=== PATIENT | male | born 1950 | race Hispanic/Latino ===

== ENCOUNTER 2022-09-29 09:17 | Day surgery (SDC) | payer BC ==
[2022-09-26 12:10] VITALS: BMI 38.7
[2022-09-29] MEDS ORDERED: Midazolam HCl 2 mg/2 ml Vial ONE (11:30)
[2022-09-29] MEDS ORDERED: fentaNYL PF 100 MCG/2 ML SYRINGE ONE ×2 (11:30→12:38)
[2022-09-29] MEDS ORDERED: Famotidine/PF 20 mg/2ml Vial ONE (11:31)
[2022-09-29] MEDS ORDERED: Dexamethasone 20 MG/5 ML VIAL ONE (12:30)
[2022-09-29] MEDS ORDERED: PROPOFOL 200 MG/20 ML VIAL ONE (12:30)
[2022-09-29] MEDS ORDERED: Ondansetron PF 4 MG/2 ML Vial ONE (12:30)
[2022-09-29] MEDS ORDERED: Lidocaine 2% PF 5 ML VIAL ONE (12:30)
== END 2022-09-29 14:39 | disposition home or self-care (01) ==
LOC: MRI 09:17
PROVIDERS: ATTEND Neurological Surgery
DX: M47.12 Other spondylosis with myelopathy, cervical region (principal); M50.01 Cervical disc disorder with myelopathy, high cervical region; M48.02 Spinal stenosis, cervical region; J45.909 Unspecified asthma, uncomplicated; E11.9 Type 2 diabetes mellitus without complications; I10 Essential (primary) hypertension; G47.33 Obstructive sleep apnea (adult) (pediatric); Z79.4 Long term (current) use of insulin; Z79.621 Long term (current) use of calcineurin inhibitor; Z79.83 Long term (current) use of bisphosphonates; Z79.899 Other long term (current) drug therapy; Z88.6 Allergy status to analgesic agent; Z91.040 Latex allergy status
CPT/HCPCS: 36416; 72141; J1100; J2001; J2250; J2405; J2704; S0028

== ENCOUNTER 2022-11-03 09:44 | Day surgery (SDC) | payer BC ==
[2022-10-30 15:12] VITALS: BMI 39.4
[2022-11-03] MEDS ORDERED: Lidocaine 1% PF 5 ML VIAL ONE (12:15)
[2022-11-03] MEDS ORDERED: PROPOFOL 200 MG/20 ML VIAL ONE (12:15)
[2022-11-03] MEDS ORDERED: Ondansetron PF 4 MG/2 ML Vial ONE (12:15)
== END 2022-11-03 13:50 | disposition home or self-care (01) ==
LOC: MRI 09:44
PROVIDERS: ATTEND Neurological Surgery
DX: I63.9 Cerebral infarction, unspecified (principal); M47.12 Other spondylosis with myelopathy, cervical region; R27.0 Ataxia, unspecified; M50.01 Cervical disc disorder with myelopathy, high cervical region; J45.909 Unspecified asthma, uncomplicated; E11.9 Type 2 diabetes mellitus without complications; I10 Essential (primary) hypertension; Z79.4 Long term (current) use of insulin; Z79.621 Long term (current) use of calcineurin inhibitor; Z79.83 Long term (current) use of bisphosphonates; Z79.899 Other long term (current) drug therapy; Z88.6 Allergy status to analgesic agent; Z91.041 Radiographic dye allergy status; Z94.4 Liver transplant status
CPT/HCPCS: 36416; 70551; J2405; J2704

== ENCOUNTER 2022-12-30 09:41 | Outpatient (CLI) | payer BC ==
[2022-12-30 11:24] LABS: Hemoglobin 13.6 g/dL (13.5-17.5); Mean Corpuscular HGB CONC 33.1 g/dL (32.0-36.0); Mean Corpuscular Volume 90.7 fl (81.2-95.1); Mean Platelet Volume 10.2 fl (7.4-10.4); Platelet Count 175 10x3/uL (150-450); RBC Distribution Width 12.8 % (11.5-14.5); Red Blood Cell (RBC) Count 4.53 10x6/uL (4.32-5.72); White Blood Cell (WBC) Count 6.6 10x3/uL (3.5-10.5)
[2022-12-30 11:34] LABS: PTT 27.1 sec (22.0-33.0)
[2022-12-30 11:42] LABS: ALT (SGPT) 26 U/L (8-55); AST (SGOT) 22 U/L (5-34); Albumin 4.6 g/dL (3.4-4.8); Alkaline Phosphatase 75 U/L (40-110); Anion Gap 16 mmol/L (10-20); BUN (Urea Nitrogen) 20 mg/dL (8.4-25.7); Bilirubin, Direct 0.3 mg/dL (0.1-0.3); Bilirubin, Total 0.6 mg/dL (0.2-1.2); Calc. Creatinine Clearance 0 mL/min (70-130); Calcium 9.8 mg/dL (7.8-10.44); Carbon Dioxide 25 mmol/L (23-31); Chloride 104 mmol/L (98-107); Estimated GFR 72; Glucose 95 mg/dL (80-115); Potassium 3.9 mmol/L (3.5-5.1); Protein, Total 7.3 g/dL (5.8-8.1); Sodium 141 mmol/L (136-145)
== END 2022-12-30 09:42 | disposition home or self-care (01) ==
LOC: LABBT 09:41
PROVIDERS: ATTEND Neurological Surgery
DX: Z01.812 Encounter for preprocedural laboratory examination (principal); M50.01 Cervical disc disorder with myelopathy, high cervical region; M53.2X2 Spinal instabilities, cervical region
CPT/HCPCS: 80048; 80076; 85027; 85610; 85730; 93005; 93010

== ENCOUNTER 2023-01-02 05:39 | Day surgery (SDC) | payer BC ==
[2022-12-30 10:01] VITALS: BMI 39.4
[2023-01-02] MEDS ORDERED: Thrombin 5000 UNITS/5 ML VIAL ONE (06:26)
[2023-01-02] MEDS ORDERED: Vancomycin 1 GM VIAL ONE (06:26)
[2023-01-02] MEDS ORDERED: Sodium Chloride 0.9% 100 ML ONE (06:42)
[2023-01-02] MEDS ORDERED: CEFAZOLIN 2 GM VIAL ONE (06:42)
[2023-01-02] MEDS ORDERED: fentaNYL PF 100 MCG/2 ML SYRINGE ONE (06:51)
[2023-01-02] MEDS ORDERED: HYDROmorphone 0.5 MG/0.5 ML SYRINGE ONE (06:51)
[2023-01-02] MEDS ORDERED: Rocuronium Bromide 10 MG/ML (10ML VIAL) ONE (07:00)
[2023-01-02] MEDS ORDERED: PROPOFOL 200 MG/20 ML VIAL ONE (07:00)
[2023-01-02] MEDS ORDERED: Dexamethasone 20 MG/5 ML VIAL ONE (07:00)
[2023-01-02] MEDS ORDERED: ePHEDrine Sulfate 50 MG/10 ML VIAL ONE (07:00)
[2023-01-02] MEDS ORDERED: PHENYLEPHRINE-NS 100 MCG/ML 10 ML SYRINGE ONE (07:00)
[2023-01-02] MEDS ORDERED: Lidocaine 1% PF 5 ML VIAL ONE (07:00)
[2023-01-02] MEDS ORDERED: Ondansetron PF 4 MG/2 ML Vial ONE (07:00)
[2023-01-02] MEDS ORDERED: Succinylcholine 200 MG/10 ml SYRINGE FS ONE (07:00)
[2023-01-02] MEDS ORDERED: SUGAMMADEX SODIUM 200 MG/2 ML VIAL ONE (08:32)
[2023-01-02] MEDS ORDERED: Fentanyl 250 MCG/5 ML VIAL ONE (09:32)
[2023-01-02] MEDS ORDERED: Promethazine HCl 25 MG/ML VIAL ONE (10:28)
== END 2023-01-02 13:38 ==
LOC: SDC 05:39
PROVIDERS: ATTEND Neurological Surgery
PROC: 0RG10A0 Fusion of Cervical Vertebral Joint with Interbody Fusion Device, Anterior Approach, Anterior Column, Open Approach (ICD-10-PCS; principal; 2023-01-02)
PROC: 0RB30ZZ Excision of Cervical Vertebral Disc, Open Approach (ICD-10-PCS; principal; 2023-01-02)
DX: M50.01 Cervical disc disorder with myelopathy, high cervical region (principal); M53.2X2 Spinal instabilities, cervical region; J45.909 Unspecified asthma, uncomplicated; E11.9 Type 2 diabetes mellitus without complications; I10 Essential (primary) hypertension; K75.9 Inflammatory liver disease, unspecified; Z94.4 Liver transplant status; Z96.653 Presence of artificial knee joint, bilateral; Z79.4 Long term (current) use of insulin; Z79.82 Long term (current) use of aspirin; Z79.621 Long term (current) use of calcineurin inhibitor; Z79.899 Other long term (current) drug therapy
CPT/HCPCS: 36416; 94660; C1713; J1100; J1170; J2405; J2550; J2704; J3010; J3370; J3490

== ENCOUNTER 2023-03-20 11:29 | Day surgery (SDC) | payer BC ==
[2023-03-19 10:15] VITALS: BMI 38.7
[2023-03-20 14:02] LABS: Anion Gap 12 mmol/L (10-20); BUN (Urea Nitrogen) 16 mg/dL (8.4-25.7); Calc. Creatinine Clearance 112 mL/min (70-130); Calcium 9.6 mg/dL (7.8-10.44); Carbon Dioxide 27 mmol/L (23-31); Chloride 102 mmol/L (98-107); Estimated GFR 76; Glucose 157 mg/dL (80-115); Potassium 3.8 mmol/L (3.5-5.1); Sodium 137 mmol/L (136-145)
[2023-03-20] MEDS ORDERED: PROPOFOL 200 MG/20 ML VIAL ONE (14:15)
[2023-03-20] MEDS ORDERED: Lidocaine 1% PF 5 ML VIAL ONE (14:15)
== END 2023-03-20 15:58 | disposition home or self-care (01) ==
LOC: MRI 11:29
PROVIDERS: ATTEND Neurological Surgery
DX: M48.062 Spinal stenosis, lumbar region with neurogenic claudication (principal); J45.909 Unspecified asthma, uncomplicated; E11.9 Type 2 diabetes mellitus without complications; I10 Essential (primary) hypertension; K75.9 Inflammatory liver disease, unspecified; Z98.52 Vasectomy status; Z94.4 Liver transplant status; Z96.659 Presence of unspecified artificial knee joint; Z88.6 Allergy status to analgesic agent; Z91.041 Radiographic dye allergy status; Z79.4 Long term (current) use of insulin; Z79.82 Long term (current) use of aspirin; Z79.899 Other long term (current) drug therapy
CPT/HCPCS: 72120; 72148; 80048

== ENCOUNTER 2023-06-25 12:48 | Outpatient (CLI) | payer BC | END 2023-06-25 12:49 | disposition home or self-care (01) | LOC: LABBT 12:48 | PROVIDERS: ATTEND Neurological Surgery | DX: Z01.810 Encounter for preprocedural cardiovascular examination (principal); I77.0 Arteriovenous fistula, acquired | CPT/HCPCS: 93005; 93010 ==

== ENCOUNTER → 2023-07-02 | Day surgery (SDC) | payer BC ==
[~2023-07-02] MED LIST: Heparin 10,000 UNITS/ 10 ML VIAL ONE; Iopamidol 370 76% 100 ML VIAL ONE
== END ==
LOC: SDC 06:24
PROVIDERS: ATTEND Neurological Surgery
DX: I77.0 Arteriovenous fistula, acquired (principal)
CPT/HCPCS: 36215; 75705; C1769; C1894; J1644; Q9967

== ENCOUNTER 2023-07-16 09:35 | Inpatient (IN) | payer MEDICARE, BC ==
[2023-07-16 12:07] LABS: #Eosinphils 0.1 thou/uL (0.0-0.7); #Monocytes 0.4 thou/uL (0.11-0.59); #Neutrophils 3.8 thou/uL (1.40-6.50); %Basophils 0.4 % (0.0-1.0); %Eosinophils 1.2 % (0.0-10.0); %Lymphocytes 23.1 % (21.0-51.0); %Monocytes 7.5 % (0.0-10.0); %Neutrophils 67.4 % (42.0-75.0); Hematocrit 38.1 % (42.0-52.0); Mean Corpuscular HGB CONC 34.1 g/dL (32.0-36.0); Mean Corpuscular Hemoglobin 31.9 pg (27.0-31.0); Mean Corpuscular Volume 93.6 fl (78.0-98.0); Platelet Count 136 10x3/uL (130-400); RBC Distribution Width 12.9 % (11.5-14.5); Red Blood Cell (RBC) Count 4.07 mill/uL (4.70-6.10); White Blood Cell (WBC) Count 5.6 10x3/uL (4.8-10.8)
[2023-07-16 12:24] LABS: Anion Gap 14 mmol/L (10-20); BUN (Urea Nitrogen) 15 mg/dL (8.4-25.7); Calc. Creatinine Clearance 123 mL/min (70-130); Carbon Dioxide 25 mmol/L (23-31); Chloride 106 mmol/L (98-107); Estimated GFR 83; Glucose 192 mg/dL (83-110); Potassium 4.1 mmol/L (3.5-5.1); Sodium 141 mmol/L (136-145)
[2023-07-16 12:29] LABS: INR-International Normal Ratio 1.1; Prothrombin Time 14.3 sec (12.0-14.7)
[2023-07-16 12:30] LABS: PTT 23.2 sec (22.9-36.1)
[2023-07-16] MEDS ORDERED: EPINEPHrine 1 MG/ML VIAL ONE (13:05)
[2023-07-16] MEDS ORDERED: Vancomycin 1 GM VIAL ONE (13:06)
[2023-07-16] MEDS ORDERED: Bupivacaine PF 0.5% 30 ML VIAL ONE (13:06)
[2023-07-16] MEDS ORDERED: Thrombin 5000 UNITS/5 ML VIAL ONE (13:06)
[2023-07-16] MEDS ORDERED: Rocuronium Bromide 10 MG/ML (10ML VIAL) ONE (13:11)
[2023-07-16] MEDS ORDERED: PROPOFOL 20 ML ONE (13:11)
[2023-07-16] MEDS ORDERED: Lidocaine 1% PF 5 ML VIAL ONE (13:11)
[2023-07-16] MEDS ORDERED: CEFAZOLIN 2 GM VIAL ONE (14:03)
[2023-07-16] MEDS ORDERED: Sodium Chloride 0.9% 100 ML ONE (14:03)
[2023-07-16] MEDS ORDERED: Fentanyl 250 MCG/5 ML VIAL ONE (14:08)
[2023-07-16] MEDS ORDERED: Ondansetron PF 4 MG/2 ML Vial ONE ×2 (15:09→20:25)
[2023-07-16] MEDS ORDERED: Dexamethasone 20 MG/5 ML VIAL ONE (15:09)
[2023-07-16] MEDS ORDERED: Vecuronium 10 MG VIAL ONE (16:03)
[2023-07-16] MEDS ORDERED: CEFAZOLIN 1 GM VIAL ONE (18:28)
[2023-07-16] MEDS ORDERED: Sterile Water 0 ML ONE (18:28)
[2023-07-16] MEDS ORDERED: SUGAMMADEX SODIUM 200 MG/2 ML VIAL ONE (19:29)
[2023-07-16] MEDS ORDERED: Promethazine HCl 25 MG/ML VIAL IM PRN (19:49)
[2023-07-16] MEDS ORDERED: Ondansetron HCl/PF 4 MG/2 ML Vial IVP PRN (19:49)
[2023-07-16] MEDS ORDERED: HYDROmorphone 2 MG/ML VIAL SLOW IVP PRN (19:49)
[2023-07-16] MEDS ORDERED: Meperidine HCl/PF 25 MG/ML VIAL SLOW IVP PRN ×2 (19:49)
[2023-07-16] MEDS ORDERED: diphenhydrAMINE 50 MG/ML VIAL IVP PRN (19:59)
[2023-07-16] MEDS ORDERED: Acetaminophen 325 MG TAB PO PRN (19:59)
[2023-07-16] MEDS ORDERED: Morphine 2 MG/ML VIAL SLOW IVP PRN (19:59)
[2023-07-16] MEDS ORDERED: Acetaminophen/Codeine 30-300mg Tablet PO PRN (19:59)
[2023-07-16] MEDS ORDERED: Mag-Al 1200 mg/1200 mg/30 ML UDCUP PO PRN (19:59)
[2023-07-16] MEDS ORDERED: Ondansetron PF 4 MG/2 ML Vial IVP PRN (19:59)
[2023-07-16] MEDS ORDERED: Bisacodyl 10 MG SUPP PR PRN (19:59)
[2023-07-16] MEDS ORDERED: fentaNYL PF 100 MCG/2 ML SYRINGE ONE (20:02)
[2023-07-16] MEDS ORDERED: fentaNYL 50 mcg/mL 1 mL Vial ONE (20:26)
[2023-07-16] MEDS: tiZANidine HCl 4 MG TAB PO PRN (21:33)
[2023-07-16] MEDS: CEFAZOLIN 2 GM in Sodium Chloride 0.9% 100 ML IVPB SCH (21:35)
[2023-07-16] MEDS: HYDROcodone/Acetaminophen 10/325 mg Tablet PO PRN (21:35)
[2023-07-16] MEDS: Sodium Chloride 0.9% 1,000 ML IV SCH (21:36)
[2023-07-17 00:50] VITALS: BMI 39.5
[2023-07-17] MEDS: tiZANidine HCl 4 MG TAB PO PRN ×2 (04:24→20:12)
[2023-07-17] MEDS: CEFAZOLIN 2 GM in Sodium Chloride 0.9% 100 ML IVPB SCH (04:24)
[2023-07-17] MEDS: Tamsulosin HCl 0.4 MG CAP PO SCH (04:24)
[2023-07-17] MEDS: Sodium Chloride 0.9% 1,000 ML IV SCH ×2 (10:12→22:09)
[2023-07-17] MEDS ORDERED: Montelukast Sodium 10 mg Tablet PO PRN (13:08)
[2023-07-17] MEDS ORDERED: Non-Formulary Item 1 EACH (Albuterol Sulfate [Proair Digihaler] 90 MCG Aer.Pw.Bas) INH PRN (13:08)
[2023-07-17] MEDS ORDERED: Albuterol 2.5 MG (3 mL) NEB NEB PRN (13:40)
[2023-07-17] MEDS ORDERED: Non-Formulary Item 1 EACH (Gabapentin [Gabapentin] 600 MG Tablet) PO SCH (15:00)
[2023-07-17] MEDS: Gabapentin 300 MG CAP PO SCH ×2 (15:40→20:11)
[2023-07-17] MEDS: HumaLOG 300 UNITS/3 ML VIAL SC SCH (18:14)
[2023-07-17] MEDS: Simvastatin 10 MG TAB PO SCH (20:10)
[2023-07-17] MEDS: Carvedilol 6.25 MG TAB PO SCH (20:11)
[2023-07-17] MEDS: Tacrolimus 1 MG CAP PO SCH (20:12)
[2023-07-17] MEDS: QUEtiapine 25 MG TAB PO SCH (20:12)
[2023-07-17] MEDS: Insulin Glargine 30 UNITS/0.3 ML VIAL SC SCH ×2 (20:14→20:29)
[2023-07-17] MEDS ORDERED: Pravastatin Sodium 20 MG TAB PO SCH (21:00)
[2023-07-17] MEDS ORDERED: Non-Formulary Item 1 EACH (Carvedilol [Coreg] 12.5 MG Tab) PO SCH (21:00)
[2023-07-17] MEDS ORDERED: Non-Formulary Item 1 EACH (Levemir Flexpen [Levemir Flexpen] 100 UNITS/ML Pen) SC SCH (21:00)
[2023-07-18] MEDS: HYDROcodone/Acetaminophen 7.5/325 mg Tablet PO PRN ×2 (03:21→22:18)
[2023-07-18] MEDS: Tamsulosin HCl 0.4 MG CAP PO SCH (06:06)
[2023-07-18] MEDS ORDERED: Non-Formulary Item 1 EACH (Esomeprazole Magnesium [Nexium] 40 MG Cap) PO SCH (08:00)
[2023-07-18] MEDS: Amlodipine 10 MG TAB PO SCH (08:49)
[2023-07-18] MEDS: Losartan 25 MG TAB PO SCH (08:50)
[2023-07-18] MEDS: Loratadine 10 MG TAB PO SCH (08:51)
[2023-07-18] MEDS: Cholecalciferol 1,000 UNITS (25 MCG) TAB PO SCH (08:51)
[2023-07-18] MEDS: QUEtiapine 25 MG TAB PO SCH ×2 (08:51→20:39)
[2023-07-18] MEDS: Carvedilol 6.25 MG TAB PO SCH ×2 (08:52→20:41)
[2023-07-18] MEDS: PARoxetine 20 MG TAB PO SCH (08:52)
[2023-07-18] MEDS: Gabapentin 300 MG CAP PO SCH ×3 (08:53→20:38)
[2023-07-18] MEDS: Tacrolimus 0.5 MG CAP PO SCH (08:53)
[2023-07-18] MEDS: tiZANidine HCl 4 MG TAB PO PRN ×2 (08:53→21:55)
[2023-07-18] MEDS ORDERED: Non-Formulary Item 1 EACH (Fexofenadine Hcl [Allegra Allergy] 180 MG Tablet) PO SCH (09:00)
[2023-07-18] MEDS ORDERED: Non-Formulary Item 1 EACH (Losartan Potassium [Losartan Potassium] 100 MG Tablet) PO SCH (09:00)
[2023-07-18] MEDS ORDERED: Non-Formulary Item 1 EACH (Paroxetine Hcl [Paroxetine Hcl] 10 MG Tablet) PO SCH (09:00)
[2023-07-18] MEDS: HumaLOG 300 UNITS/3 ML VIAL SC SCH ×3 (09:02→18:15)
[2023-07-18] MEDS: HYDROcodone/Acetaminophen 10/325 mg Tablet PO PRN ×2 (09:03→18:11)
[2023-07-18] MEDS ORDERED: Milk Of Magnesia 30 ML UDCUP PO PRN (12:49)
[2023-07-18] MEDS: Sodium Chloride 0.9% 1,000 ML IV SCH (13:20)
[2023-07-18] MEDS: Simvastatin 10 MG TAB PO SCH (20:38)
[2023-07-18] MEDS: Docusate 100 MG CAP PO SCH (20:40)
[2023-07-18] MEDS: Tacrolimus 1 MG CAP PO SCH (20:40)
[2023-07-18] MEDS: Insulin Glargine 30 UNITS/0.3 ML VIAL SC SCH ×2 (21:55)
[2023-07-19] MEDS ORDERED: Insulin Glargine 30 UNITS/0.3 ML VIAL SC SCH ×2 (00:30→21:30)
[2023-07-19] MEDS: HYDROcodone/Acetaminophen 7.5/325 mg Tablet PO PRN (04:09)
[2023-07-19] MEDS: Sodium Chloride 0.9% 1,000 ML IV SCH ×2 (04:23→11:32)
[2023-07-19] MEDS: Tamsulosin HCl 0.4 MG CAP PO SCH (05:14)
[2023-07-19] MEDS ORDERED: Alendronate Sodium 70 mg Tablet PO SCH (06:00)
[2023-07-19] MEDS: Cholecalciferol 1,000 UNITS (25 MCG) TAB PO SCH (08:23)
[2023-07-19] MEDS: Losartan 25 MG TAB PO SCH (08:23)
[2023-07-19] MEDS: PARoxetine 20 MG TAB PO SCH (08:23)
[2023-07-19] MEDS: QUEtiapine 25 MG TAB PO SCH ×2 (08:23→20:24)
[2023-07-19] MEDS: Carvedilol 6.25 MG TAB PO SCH ×2 (08:23→20:25)
[2023-07-19] MEDS: Docusate 100 MG CAP PO SCH ×2 (08:24→20:23)
[2023-07-19] MEDS: Tacrolimus 0.5 MG CAP PO SCH (08:24)
[2023-07-19] MEDS: Amlodipine 10 MG TAB PO SCH (08:24)
[2023-07-19] MEDS: Gabapentin 300 MG CAP PO SCH ×3 (08:24→20:23)
[2023-07-19] MEDS: Loratadine 10 MG TAB PO SCH (08:24)
[2023-07-19] MEDS: HYDROcodone/Acetaminophen 10/325 mg Tablet PO PRN (08:24)
[2023-07-19] MEDS: HumaLOG 300 UNITS/3 ML VIAL SC SCH ×3 (08:36→17:17)
[2023-07-19] MEDS ORDERED: oxyCODONE 5 MG TAB PO PRN (10:29)
[2023-07-19] MEDS: tiZANidine HCl 4 MG TAB PO PRN (12:33)
[2023-07-19] MEDS: oxyCODONE 5 MG TAB PO PRN ×2 (17:18→21:14)
[2023-07-19] MEDS: Tacrolimus 1 MG CAP PO SCH (20:21)
[2023-07-19] MEDS: Simvastatin 10 MG TAB PO SCH (20:25)
[2023-07-19] MEDS: Insulin Glargine 30 UNITS/0.3 ML VIAL SC SCH (21:30)
[2023-07-20] MEDS: tiZANidine HCl 4 MG TAB PO PRN ×2 (00:59→08:31)
[2023-07-20] MEDS: oxyCODONE 5 MG TAB PO PRN ×4 (00:59→16:02)
[2023-07-20] MEDS: Sodium Chloride 0.9% 1,000 ML IV SCH (03:12)
[2023-07-20] MEDS: Tamsulosin HCl 0.4 MG CAP PO SCH (05:26)
[2023-07-20] MEDS: HumaLOG 300 UNITS/3 ML VIAL SC SCH ×2 (08:30→13:38)
[2023-07-20] MEDS: Docusate 100 MG CAP PO SCH (08:31)
[2023-07-20] MEDS: Cholecalciferol 1,000 UNITS (25 MCG) TAB PO SCH (08:31)
[2023-07-20] MEDS: Losartan 25 MG TAB PO SCH (08:31)
[2023-07-20] MEDS: Carvedilol 6.25 MG TAB PO SCH (08:32)
[2023-07-20] MEDS: Tacrolimus 0.5 MG CAP PO SCH (08:32)
[2023-07-20] MEDS: PARoxetine 20 MG TAB PO SCH (08:32)
[2023-07-20] MEDS: QUEtiapine 25 MG TAB PO SCH (08:33)
[2023-07-20] MEDS: Gabapentin 300 MG CAP PO SCH ×2 (08:33→16:03)
[2023-07-20] MEDS: Amlodipine 10 MG TAB PO SCH (08:33)
[2023-07-20] MEDS: Loratadine 10 MG TAB PO SCH (08:33)
[2023-07-20 13:00] VITALS: BP 115/73; TEMP 97.6
== END 2023-07-20 17:29 | DRG 253 ==
LOC: SDC 09:35 → SURG A 19:43
PROVIDERS: ADMIT Neurological Surgery; ATTEND Neurological Surgery
PROC: 03LY0ZZ Occlusion of Upper Artery, Open Approach (ICD-10-PCS; principal; 2023-07-16)
PROC: 3E033XZ Introduction of Vasopressor into Peripheral Vein, Percutaneous Approach (ICD-10-PCS; 2023-07-16)
DX: I77.0 Arteriovenous fistula, acquired (principal); Z94.4 Liver transplant status; I10 Essential (primary) hypertension; J45.909 Unspecified asthma, uncomplicated; E11.40 Type 2 diabetes mellitus with diabetic neuropathy, unspecified; Z96.653 Presence of artificial knee joint, bilateral; Z79.899 Other long term (current) drug therapy; Z98.52 Vasectomy status; Z79.84 Long term (current) use of oral hypoglycemic drugs; Z91.040 Latex allergy status; Z88.8 Allergy status to other drugs, medicaments and biological substances; Z82.49 Family history of ischemic heart disease and other diseases of the circulatory system
CPT/HCPCS: 36416; 80048; 85025; 85610; 85730; 93970; A4314; C1889; J0171; J0690; J1100; J1815; J2405; J2704; J3010; J3370; J3490; J7050; J7507; S0020